=== PATIENT | female | born 1980 | race Caucasian/White ===

== ENCOUNTER → 2019-08-05 | Outpatient (CLI) | payer OTHER ==
[2019-08-05 11:37] LABS: BASO % 0.4 % (0.0-2.0); EOS # 0.1 (0.0-0.7); EOS % 0.9 % (0-4.0); GRAN # 5.3 (1.4-6.5); GRAN % 64.2 % (42.2-75.2); HEMATOCRIT 38.7 % (37.0-47.0); HEMOGLOBIN 12.9 g/dl (12.5-16.0); LYMPH # 2.3 (1.2-3.4); LYMPH % 27.9 % (20.0-51.0); MEAN CELL VOLUME 87 fl (80.0-100.0); MEAN CORPUSCULAR HEMOGLOBIN 29 pg (27.0-31.0); MEAN CORPUSCULAR HGB CONC 33 g/dl (33.0-37.0); MEAN PLATELET VOLUME 9.5 fl (7.4-10.4); MONO # 0.5 (0.1-0.6); MONO % 6.5 % (1.7-9.3); PLATELET COUNT 397 K/mm3 (130-400); RED BLOOD COUNT 4.43 M/mm3 (4.10-5.30)
[2019-08-05 11:46] LABS: ALBUMIN 4.2 gm/dL (3.5-5.0); BILIRUBIN,TOTAL 0.3 mg/dL (0.0-1.0); CREATININE, serum 0.46 (0.52-1.25); POTASSIUM 4.2 mmol/L (3.4-5.0); TOTAL PROTEIN 8.4 gm/dL (6.4-8.2)
== END ==
LOC: COL.RAD 09:33
PROVIDERS: Family Medicine
DX: K80.20 Calculus of gallbladder without cholecystitis without obstruction (principal)

== ENCOUNTER 2019-09-03 05:21 | Day surgery (SDC) | payer OTHER ==
[~2019-09-03] VITALS: Ht 157.5 cm; Wt 91.6 kg
[2019-09-03] VITALS (7 sets, daily range): BP systolic 117–130; BP diastolic 58–70; PULSE 63–69; TEMP 98.5
--- NOTE | 2019-09-03 06:05 | NUR ---
The patient answered yes to the first two suicide prevention questions when asked by the nurse. She appeared hesitant to answer the questions but there is a language barrier present as [place] is not her first language. She expressed to the nurse that she felt she had people around her that she could talk to in a time of need and the nurse provided the patient with the list of local mental health resources. The nurse spoke with the patient regarding talking with her doctor or one of the resources on the list regarding how she has been feeling and she verbalized understanding. Dr. Joseph will be made aware of the patient's responses prior to surgery.
[2019-09-03] MEDS ORDERED: NORCO 325 MG-51 TAB PO (08:48)
--- NOTE | 2019-09-03 09:30 | NUR ---
The patient arrived back to [facility] from the recovery room at this time. The patient appears alert and oriented and denies any pain or nausea at this time. The patient has four lap sites to her abdomen that appear without redness or edema and and covered with strickland set. The patient has oxygen in place at 2L per nasal cannula. Post operative vital signs were started at this time. The patient's significant other is at her bedside at this time. Call light is within reach. Will continue to monitor the patient.
--- NOTE | 2019-09-03 09:45 | NUR ---
The patient continues to deny any pain or nausea at this time. The patient appears to be tolerating the water well and agrees to try some toast and jello. The patient's significant other stepped out to get the other familiy members that came to see the patient. Will continue to monitor the patient.
--- NOTE | 2019-09-03 10:00 | NUR ---
The patient is sitting up in bed talking with her family and appears to be resting comfortably at this time. Will continue to monitor the patient.
--- NOTE | 2019-09-03 10:09 | NUR ---
The patient has finished her toast and appeared to tolerate it well. The patient was given a PRN dose of [place] one tab at this time to continue her pain control prior to her ambulating to the bathroom. The patient's family is at her bedside. Will continue to monitor the patient.
--- NOTE | 2019-09-03 10:40 | NUR ---
The patient ambulated to the bathroom with the stand by assistance of one nurse and appeared to tolerate the activity well. The patient voided without difficulty and voices a desire to be discharged home. The nurse instructed the patient to get dressed and notify the staff when she is ready to review her discharge paperwork.
--- NOTE | 2019-09-03 10:50 | NUR ---
Discharge instructions wer reviewed with the patient and her family at this time. They all verbalized understanding and have no questions for the nurse at this time. The patient's IV to her right hand was removed and a pressure dressing was applied to the site. The patient is dressed and ready to be escorted out.
--- NOTE | 2019-09-03 11:00 | NUR ---
The patient was escorted out via wheelchair to a private vehicle by LISA Francois. The patient's belonings and discharge paperwork were sent with her. The patient's significant other is present to drive her home.
== END 2019-09-03 11:00 | disposition home or self-care (01) ==
LOC: SDCO 05:21
DX: K80.10 Calculus of gallbladder with chronic cholecystitis without obstruction (principal); E66.9 Obesity, unspecified; Z68.37 Body mass index [BMI] 37.0-37.9, adult
CPT/HCPCS: J0690; J1100; J2405; J2704; J3010; J7120

== ENCOUNTER → 2021-03-10 | Outpatient (CLI) | payer OTHER ==
[~2021-03-10] MED LIST: NORCO 325 MG-51 TAB PO
== END ==
LOC: MC.RAD 09:30
DX: Z12.31 Encounter for screening mammogram for malignant neoplasm of breast (principal)